=== PATIENT | female | born 1935 | race Asian ===

== ENCOUNTER 2017-03-04 11:41 | Inpatient (IN) | payer OTHER ==
[~2017-03-04] VITALS: Ht 152.4 cm; Wt 39.9 kg
[~2017-03-04 11:41] MED LIST: BLEPH-105 ML; COL100 PO; FLO4 PO; FOLIC ACID0.4 MG; LAC PO; LEVOTHYROXINE0.05 M2 PO; LIPI20 PO; MAC100 PO; MIRUD PO; NOR10T PO; PREDNISONE1 MG; TYLENOL EXTRA500 M2
[2017-03-04 12:23] LABS: BASOPHIL % 0.3 % (0-2); PLATELET COUNT 365 x10^3mcL (130-400)
[2017-03-04 12:34] LABS: CARBON DIOXIDE 18.1 mmol/L (21-32); CHLORIDE SERUM 96 mmol/L (98-107); CREATININE SERUM 0.9 mg/dL (0.6-1.0); GLUCOSE SERUM 125 mg/dL (74-106); POTASSIUM SERUM 4.3 mmol/L (3.5-5.1); SODIUM SERUM 133 mmol/L (136-145)
[2017-03-04 12:40] LABS: ALBUMIN 3.5 g/dL (3.4-5.0); ALKALINE PHOSPHATASE 60 U/L (46-116); ALT/SGPT 30 U/L (14-59); AST/SGOT 25 U/L (15-37); BILIRUBIN TOTAL 1.3 mg/dL (0.20-1.00); TOTAL PROTEIN, SERUM 8.2 g/dL (6.4-8.2)
[2017-03-04 15:00] LABS: MAGNESIUM 2.5 mg/dL (1.8-2.4); PHOSPHOROUS 3.9 mg/dL (2.5-4.9)
[2017-03-04 15:09] LABS: T3 TOTAL 0.63 ng/mL
[2017-03-04 15:13] LABS: FREE T4 2.06 ng/dL (0.76-1.46); FREE THYROXINE INDEX 3.9 ug/dL (1.4-4.5); T4(THYROXINE) 9.7 ug/dL (4.7-13.3)
[2017-03-04 15:33] VITALS: BP 178/99
[2017-03-04 18:23] LABS: UA SPECIFIC GRAVITY 1.025 (1.005-1.035); microscopic required? YES; urine erythrocyte 3+ (NEGATIVE)
[2017-03-04 18:46] VITALS: BP 155/89
[2017-03-04 18:48] LABS: AMPHETAMINE QUAL UR NONE DETECTED (NEG <=1000)
[2017-03-04 21:59] VITALS: BP 142/92
[2017-03-05 06:13] VITALS: BP 138/82
[2017-03-05 06:41] LABS: CARBON DIOXIDE 17.6 mmol/L (21-32); CHLORIDE SERUM 104 mmol/L (98-107); CHOLESTEROL 147 mg/dL (<200); CREATININE SERUM 0.8 mg/dL (0.6-1.0); GLUCOSE SERUM 132 mg/dL (74-106); HDL CHOLESTEROL 49 mg/dL (40-60); POTASSIUM SERUM 4.4 mmol/L (3.5-5.1); SODIUM SERUM 139 mmol/L (136-145); TRIGLYCERIDES 51 mg/dL (<150)
[2017-03-05 06:43] LABS: BASOPHIL % 0.2 % (0-2); PLATELET COUNT 291 x10^3mcL (130-400)
[2017-03-05 08:39] VITALS: BP 125/79
[2017-03-05 14:14] VITALS: BP 102/54
[2017-03-05 22:27] VITALS: BP 133/81; BP 140/79
[2017-03-06 06:33] LABS: BASOPHIL % 0.2 % (0-2); PLATELET COUNT 256 x10^3mcL (130-400)
[2017-03-06 06:36] LABS: RED CELL DISTRIBUTION WIDTH 19.4 % (11.5-14.5)
[2017-03-06 06:48] LABS: CALCIUM 7.6 mg/dL (8.5-10.1); CARBON DIOXIDE 16.9 mmol/L (21-32); CHLORIDE SERUM 115 mmol/L (98-107); CREATININE SERUM 0.7 mg/dL (0.6-1.0); GLUCOSE SERUM 112 mg/dL (74-106); MAGNESIUM 2.1 mg/dL (1.8-2.4); PHOSPHOROUS 2.5 mg/dL (2.5-4.9); POTASSIUM SERUM 3.6 mmol/L (3.5-5.1); SODIUM SERUM 146 mmol/L (136-145)
[2017-03-06 06:58] VITALS: BP 138/80
[2017-03-06 09:18] VITALS: BP 135/76
[2017-03-06 18:10] VITALS: BP 162/90
[2017-03-06 18:16] VITALS: BP 153/86
[2017-03-06 20:59] VITALS: BP 127/77
[2017-03-07 05:29] VITALS: BP 157/83
[2017-03-07 06:25] LABS: BASOPHIL % 0.2 % (0-2); PLATELET COUNT 234 x10^3mcL (130-400)
[2017-03-07 06:35] LABS: CALCIUM 7.4 mg/dL (8.5-10.1); CARBON DIOXIDE 21.6 mmol/L (21-32); CHLORIDE SERUM 113 mmol/L (98-107); CREATININE SERUM 0.8 mg/dL (0.6-1.0); GLUCOSE SERUM 83 mg/dL (74-106); MAGNESIUM 1.9 mg/dL (1.8-2.4); PHOSPHOROUS 2.7 mg/dL (2.5-4.9); POTASSIUM SERUM 3.9 mmol/L (3.5-5.1); SODIUM SERUM 143 mmol/L (136-145)
[2017-03-07 06:37] LABS: ALBUMIN 2.1 g/dL (3.4-5.0)
[2017-03-07 06:52] LABS: RED CELL DISTRIBUTION WIDTH 20.4 % (11.5-14.5); rbc morphology (normal/abnorm) ABNORMAL (NORMAL)
[2017-03-07 09:17] VITALS: BP 163/79
[2017-03-07] MEDS ORDERED: VALACYCLOVIR HYD1 GM PO (09:19)
[2017-03-07] MEDS ORDERED: BACTRIM DS1 TAB PO (09:21)
[2017-03-07] MEDS ORDERED: MEDDP PO (09:22)
[2017-03-07] MEDS ORDERED: LAC PO (09:24)
[2017-03-07] MEDS ORDERED: AMITRIPTYLINE H25 MG PO (09:24)
[2017-03-07 10:45] VITALS: BP 148/88
[2017-03-07] MEDS ORDERED: LISINOPRIL5 MG PO (11:21)
[2017-03-07 17:19] VITALS: BP 150/87
[2017-03-07 21:53] VITALS: BP 150/81
[2017-03-08 06:41] LABS: CALCIUM 8.6 mg/dL (8.5-10.1); CARBON DIOXIDE 22.8 mmol/L (21-32); CHLORIDE SERUM 111 mmol/L (98-107); CREATININE SERUM 0.8 mg/dL (0.6-1.0); GLUCOSE SERUM 114 mg/dL (74-106); MAGNESIUM 2.1 mg/dL (1.8-2.4); PHOSPHOROUS 4.3 mg/dL (2.5-4.9); SODIUM SERUM 145 mmol/L (136-145)
[2017-03-08 06:43] LABS: BASOPHIL % 0.2 % (0-2); PLATELET COUNT 291 x10^3mcL (130-400)
[2017-03-08 06:56] VITALS: BP 153/90
[2017-03-08 07:00] LABS: POTASSIUM SERUM 2.9 mmol/L (3.5-5.1)
[2017-03-08 07:10] LABS: RED CELL DISTRIBUTION WIDTH 20.5 % (11.5-14.5)
[2017-03-08 08:21] LABS: rbc morphology (normal/abnorm) ABNORMAL (NORMAL)
[2017-03-08 09:26] VITALS: BP 149/78
[2017-03-08 17:24] VITALS: BP 149/75
[2017-03-08 21:26] VITALS: BP 118/54
[2017-03-08 22:47] VITALS: BP 155/91
[2017-03-09 06:26] VITALS: BP 164/95
[2017-03-09 06:47] LABS: CALCIUM 8.2 mg/dL (8.5-10.1); CARBON DIOXIDE 26.3 mmol/L (21-32); CHLORIDE SERUM 112 mmol/L (98-107); CREATININE SERUM 0.8 mg/dL (0.6-1.0); GLUCOSE SERUM 73 mg/dL (74-106); MAGNESIUM 2.1 mg/dL (1.8-2.4); PHOSPHOROUS 3.3 mg/dL (2.5-4.9); POTASSIUM SERUM 4.3 mmol/L (3.5-5.1); SODIUM SERUM 145 mmol/L (136-145)
[2017-03-09 06:49] LABS: BASOPHIL % 0.3 % (0-2); PLATELET COUNT 238 x10^3mcL (130-400)
[2017-03-09 07:03] LABS: RED CELL DISTRIBUTION WIDTH 20.3 % (11.5-14.5)
[2017-03-09 09:02] VITALS: BP 146/88
[2017-03-09] MEDS ORDERED: NOR10T PO (12:36)
[2017-03-09 12:49] VITALS: BP 146/88
== END 2017-03-09 15:02 | disposition home health service (06) | DRG 640 ==
LOC: ED 11:41 → DU 13:24 → MU 13:24 → DU 15:14 → MU 03-06 08:08
PROVIDERS: Emergency Medicine; Family Medicine; ADMIT Family Medicine
DX: E86.0 Dehydration (principal); N17.0 Acute kidney failure with tubular necrosis; E43 Unspecified severe protein-calorie malnutrition; Z68.1 Body mass index [BMI] 19.9 or less, adult; B02.8 Zoster with other complications; N39.0 Urinary tract infection, site not specified; E87.1 Hypo-osmolality and hyponatremia; E03.9 Hypothyroidism, unspecified; I10 Essential (primary) hypertension; E78.5 Hyperlipidemia, unspecified; M06.9 Rheumatoid arthritis, unspecified; R73.03 Prediabetes; D32.0 Benign neoplasm of cerebral meninges
CPT/HCPCS: 82962; 83880; 84439; 94150; 97110-GP; 97530-GP; J0696; J2543; J2920; J2930; J3010; J3480; J7030; Q0092; Q0163

== ENCOUNTER 2017-04-09 19:56 | Inpatient (IN) | payer OTHER ==
[~2017-04-09] VITALS: Ht 152.4 cm; Wt 40.8 kg
[~2017-04-09 19:56] MED LIST changes: +AMITRIPTYLINE H25 MG PO; +BACTRIM DS1 TAB PO; +LISINOPRIL5 MG PO; +MEDDP PO; +VALACYCLOVIR HYD1 GM PO
[2017-04-09 20:58] LABS: BASOPHIL % 0.5 % (0-2)
[2017-04-09 21:01] LABS: PLATELET COUNT 450 x10^3mcL (130-400); RED CELL DISTRIBUTION WIDTH 21.1 % (11.5-14.5)
[2017-04-09 21:07] LABS: CALCIUM 8.3 mg/dL (8.5-10.1); CARBON DIOXIDE 22.5 mmol/L (21-32); CHLORIDE SERUM 107 mmol/L (98-107); CREATININE SERUM 0.7 mg/dL (0.6-1.0); GLUCOSE SERUM 94 mg/dL (74-106); POTASSIUM SERUM 3.7 mmol/L (3.5-5.1); SODIUM SERUM 143 mmol/L (136-145)
[2017-04-09 21:19] LABS: ALKALINE PHOSPHATASE 59 U/L (46-116); ALT/SGPT 8 U/L (14-59); AST/SGOT 16 U/L (15-37); BILIRUBIN TOTAL 0.56 mg/dL (0.20-1.00); TOTAL PROTEIN, SERUM 6.8 g/dL (6.4-8.2)
[2017-04-09 21:21] LABS: ALBUMIN 2.1 g/dL (3.4-5.0)
[2017-04-09 22:21] LABS: ovalocyte/elliptocyte 1+; rbc morphology (normal/abnorm) ABNORMAL (NORMAL); tear drop cell (dacryocyte) 1+
[2017-04-09 22:45] LABS: UA SPECIFIC GRAVITY 1.025 (1.005-1.035); microscopic required? YES; urine erythrocyte 2+ (NEGATIVE)
[2017-04-10 01:25] VITALS: BP 131/71
[2017-04-10 01:46] LABS: MAGNESIUM 1.8 mg/dL (1.8-2.4); PHOSPHOROUS 3.6 mg/dL (2.5-4.9)
[2017-04-10 01:47] LABS: CHOLESTEROL/HDL RATIO 3.9
[2017-04-10 01:53] LABS: T3 TOTAL 0.75 ng/mL
[2017-04-10 01:58] LABS: FREE T4 1.44 ng/dL (0.76-1.46); FREE THYROXINE INDEX 3.1 ug/dL (1.4-4.5)
[2017-04-10 06:02] LABS: BASOPHIL % 0.4 % (0-2); PLATELET COUNT 352 x10^3mcL (130-400)
[2017-04-10 06:14] LABS: CALCIUM 7.9 mg/dL (8.5-10.1); CARBON DIOXIDE 23.6 mmol/L (21-32); CHLORIDE SERUM 108 mmol/L (98-107); CREATININE SERUM 0.5 mg/dL (0.6-1.0); GLUCOSE SERUM 78 mg/dL (74-106); POTASSIUM SERUM 3.4 mmol/L (3.5-5.1); SODIUM SERUM 139 mmol/L (136-145)
[2017-04-10 06:22] LABS: RED CELL DISTRIBUTION WIDTH 21.3 % (11.5-14.5)
[2017-04-10 07:01] VITALS: BP 134/64
[2017-04-10 07:30] LABS: rbc morphology (normal/abnorm) ABNORMAL (NORMAL)
[2017-04-10 10:20] VITALS: BP 129/70
[2017-04-10 14:35] VITALS: BP 130/60
[2017-04-10 18:15] VITALS: BP 152/73
[2017-04-10 21:53] VITALS: BP 150/73
[2017-04-11 05:21] VITALS: BP 133/70
[2017-04-11 06:21] LABS: BASOPHIL % 0.3 % (0-2); PLATELET COUNT 334 x10^3mcL (130-400)
[2017-04-11 06:22] LABS: CARBON DIOXIDE 20.9 mmol/L (21-32); CHLORIDE SERUM 113 mmol/L (98-107); CREATININE SERUM 0.5 mg/dL (0.6-1.0); GLUCOSE SERUM 89 mg/dL (74-106); POTASSIUM SERUM 3.4 mmol/L (3.5-5.1); SODIUM SERUM 145 mmol/L (136-145)
[2017-04-11 07:46] LABS: RED CELL DISTRIBUTION WIDTH 21.1 % (11.5-14.5)
[2017-04-11 08:00] VITALS: BP 152/71
[2017-04-11 13:47] VITALS: BP 132/74
[2017-04-11 17:00] VITALS: BP 134/68
[2017-04-11 20:49] VITALS: BP 157/79
[2017-04-12 05:23] VITALS: BP 153/87
[2017-04-12 07:04] LABS: CARBON DIOXIDE 23.4 mmol/L (21-32); CHLORIDE SERUM 112 mmol/L (98-107); CREATININE SERUM 0.5 mg/dL (0.6-1.0); GLUCOSE SERUM 79 mg/dL (74-106); POTASSIUM SERUM 3.5 mmol/L (3.5-5.1); SODIUM SERUM 143 mmol/L (136-145)
[2017-04-12 08:41] LABS: BASOPHIL % 0.4 % (0-2); PLATELET COUNT 372 x10^3mcL (130-400)
[2017-04-12 09:00] LABS: RED CELL DISTRIBUTION WIDTH 21.1 % (11.5-14.5)
[2017-04-12 10:00] VITALS: BP 139/67
[2017-04-12 14:00] VITALS: BP 138/68
[2017-04-13 05:33] LABS: BASOPHIL % 0.4 % (0-2); PLATELET COUNT 349 x10^3mcL (130-400)
[2017-04-13 05:46] LABS: CALCIUM 7.9 mg/dL (8.5-10.1); CARBON DIOXIDE 22.9 mmol/L (21-32); CHLORIDE SERUM 116 mmol/L (98-107); CREATININE SERUM 0.5 mg/dL (0.6-1.0); GLUCOSE SERUM 85 mg/dL (74-106); POTASSIUM SERUM 3.8 mmol/L (3.5-5.1); SODIUM SERUM 145 mmol/L (136-145)
[2017-04-13 06:47] LABS: RED CELL DISTRIBUTION WIDTH 20.4 % (11.5-14.5)
[2017-04-13 09:55] VITALS: BP 145/65
[2017-04-13 13:13] VITALS: BP 149/84
[2017-04-13] MEDS ORDERED: PREDNISONE2.5 MG (14:19)
[2017-04-13] MEDS ORDERED: PREDNISONE2.5 MG PO (14:20)
[2017-04-13 17:11] VITALS: BP 148/84
[2017-04-13 20:33] VITALS: BP 139/84
[2017-04-14 05:51] VITALS: BP 148/73
[2017-04-14 06:42] LABS: BASOPHIL % 0.5 % (0-2); PLATELET COUNT 302 x10^3mcL (130-400)
[2017-04-14 06:43] LABS: RED CELL DISTRIBUTION WIDTH 20.3 % (11.5-14.5)
[2017-04-14 07:08] LABS: rbc morphology (normal/abnorm) ABNORMAL (NORMAL)
[2017-04-14 07:33] LABS: CHLORIDE SERUM 113 mmol/L (98-107); CREATININE SERUM 0.5 mg/dL (0.6-1.0); GLUCOSE SERUM 75 mg/dL (74-106); POTASSIUM SERUM 3.8 mmol/L (3.5-5.1); SODIUM SERUM 139 mmol/L (136-145)
[2017-04-14 09:38] VITALS: BP 136/70
[2017-04-14 13:26] VITALS: BP 151/82
[2017-04-14 17:12] VITALS: BP 164/81
[2017-04-14] MEDS ORDERED: LAC PO (17:12)
[2017-04-14] MEDS ORDERED: TYLENOL WITH CO1 TA2 PO (17:12)
[2017-04-14] MEDS ORDERED: BACTRIM1 TAB PO (17:12)
[2017-04-14] MEDS ORDERED: PHARMASSURE FO0.4 MG PO (17:46)
[2017-04-14] MEDS ORDERED: TYLENOL EXTRA500 M3 PO (17:48)
[2017-04-14 18:07] VITALS: BP 151/82
[2017-04-14 22:06] VITALS: BP 140/72
[2017-04-15 02:40] VITALS: BP 128/83
[2017-04-15 06:10] VITALS: BP 144/65
[2017-04-15 09:43] VITALS: BP 141/70
[2017-04-15 14:22] VITALS: BP 147/78
[2017-04-15 17:25] VITALS: BP 159/94
[2017-04-15 22:09] VITALS: BP 129/71
[2017-04-16 06:14] VITALS: BP 152/91
[2017-04-16 06:15] VITALS: BP 144/68
[2017-04-16 09:29] VITALS: BP 147/83
[2017-04-16 13:05] VITALS: BP 122/58
[2017-04-16 17:50] VITALS: BP 162/87
[2017-04-16 21:17] VITALS: BP 134/71
[2017-04-17] VITALS (9 sets, daily range): BP systolic 115–162; BP diastolic 63–91
[2017-04-18 05:51] VITALS: BP 159/72
[2017-04-18 06:54] LABS: CALCIUM 7.9 mg/dL (8.5-10.1); CARBON DIOXIDE 19.9 mmol/L (21-32); CHLORIDE SERUM 113 mmol/L (98-107); CREATININE SERUM 0.4 mg/dL (0.6-1.0); GLUCOSE SERUM 76 mg/dL (74-106); POTASSIUM SERUM 3.4 mmol/L (3.5-5.1); SODIUM SERUM 141 mmol/L (136-145)
[2017-04-18 08:25] VITALS: BP 142/80
[2017-04-18 09:23] VITALS: BP 123/76
[2017-04-18 13:47] VITALS: BP 136/77
[2017-04-18 17:51] VITALS: BP 136/52
[2017-04-18] MEDS ORDERED: LAC PO (18:01)
[2017-04-18] MEDS ORDERED: BACTRIM DS1 TAB PO (18:01)
== END 2017-04-18 19:46 | disposition home or self-care (01) | DRG 871 ==
LOC: ED 19:56 → DU 04-10 00:18
PROVIDERS: Emergency Medicine; Family Medicine; ADMIT Family Medicine
DX: A41.9 Sepsis, unspecified organism (principal); N17.0 Acute kidney failure with tubular necrosis; E43 Unspecified severe protein-calorie malnutrition; N39.0 Urinary tract infection, site not specified; B02.8 Zoster with other complications; Z68.1 Body mass index [BMI] 19.9 or less, adult; R65.20 Severe sepsis without septic shock; M94.0 Chondrocostal junction syndrome [Tietze]; R73.03 Prediabetes; E03.9 Hypothyroidism, unspecified; I10 Essential (primary) hypertension; D32.0 Benign neoplasm of cerebral meninges; M06.9 Rheumatoid arthritis, unspecified; N20.0 Calculus of kidney; M15.9 Polyosteoarthritis, unspecified; E78.5 Hyperlipidemia, unspecified; M62.50 Muscle wasting and atrophy, not elsewhere classified, unspecified site; Z99.3 Dependence on wheelchair
CPT/HCPCS: 82962; 83880; 84439; 92610-GN; 97110-GP; 97530-GP; J0696; J1644; J1885; J7030; J7512; P9045

== ENCOUNTER 2017-05-03 15:36 | Inpatient (IN) | payer OTHER ==
[~2017-05-03] VITALS: Ht 152.4 cm; Wt 38.8 kg
[~2017-05-03 15:36] MED LIST changes: +BACTRIM1 TAB PO; +PHARMASSURE FO0.4 MG PO; +PREDNISONE2.5 MG; +PREDNISONE2.5 MG PO; +TYLENOL EXTRA500 M3 PO; +TYLENOL WITH CO1 TA2 PO
[2017-05-03 18:23] LABS: BASOPHIL % 0.3 % (0-2)
[2017-05-03 18:24] LABS: UA SPECIFIC GRAVITY 1.025 (1.005-1.035); microscopic required? YES; urine erythrocyte 3+ (NEGATIVE)
[2017-05-03 18:27] LABS: PLATELET COUNT 613 x10^3mcL (130-400); RED CELL DISTRIBUTION WIDTH 20.6 % (11.5-14.5)
[2017-05-03 18:45] LABS: AMPHETAMINE QUAL UR NONE DETECTED (NEG <=1000)
[2017-05-03 19:13] LABS: CALCIUM 7.9 mg/dL (8.5-10.1); CARBON DIOXIDE 16.9 mmol/L (21-32); CHLORIDE SERUM 107 mmol/L (98-107); CREATININE SERUM 0.9 mg/dL (0.6-1.0); GLUCOSE SERUM 97 mg/dL (74-106); POTASSIUM SERUM 4.6 mmol/L (3.5-5.1); SODIUM SERUM 140 mmol/L (136-145)
[2017-05-03 19:23] LABS: ALKALINE PHOSPHATASE 74 U/L (46-116); ALT/SGPT 9 U/L (14-59); AMYLASE 41 U/L (25-115); AST/SGOT 16 U/L (15-37); BILIRUBIN TOTAL 0.6 mg/dL (0.20-1.00); LIPASE 143 IU/L (73-393); MAGNESIUM 1.8 mg/dL (1.8-2.4); T4(THYROXINE) 6.6 ug/dL (4.7-13.3); TOTAL PROTEIN, SERUM 7.1 g/dL (6.4-8.2)
[2017-05-03 19:27] LABS: ALBUMIN 2.1 g/dL (3.4-5.0); CHOLESTEROL 109 mg/dL (<200); HDL CHOLESTEROL 34 mg/dL (40-60)
[2017-05-03 21:02] VITALS: BP 138/85
[2017-05-03 21:51] LABS: CHOLESTEROL/HDL RATIO 3.1
[2017-05-04 05:57] VITALS: BP 102/60
[2017-05-04 06:35] LABS: BASOPHIL % 0.3 % (0-2)
[2017-05-04 06:55] LABS: RED CELL DISTRIBUTION WIDTH 20.5 % (11.5-14.5)
[2017-05-04 07:26] LABS: CALCIUM 7.2 mg/dL (8.5-10.1); CARBON DIOXIDE 17.5 mmol/L (21-32); CHLORIDE SERUM 111 mmol/L (98-107); CREATININE SERUM 0.4 mg/dL (0.6-1.0); GLUCOSE SERUM 67 mg/dL (74-106); POTASSIUM SERUM 3.2 mmol/L (3.5-5.1); SODIUM SERUM 139 mmol/L (136-145)
[2017-05-04 07:45] LABS: PLATELET COUNT 524 x10^3mcL (130-400); rbc morphology (normal/abnorm) ABNORMAL (NORMAL)
[2017-05-04 08:59] VITALS: BP 133/73
[2017-05-04 13:58] VITALS: BP 113/62
[2017-05-04 17:48] VITALS: BP 119/66
[2017-05-04 20:45] VITALS: BP 100/52
[2017-05-05 05:26] VITALS: BP 119/63
[2017-05-05 10:28] VITALS: BP 133/67
[2017-05-05 13:56] VITALS: BP 118/59
[2017-05-05 14:08] VITALS: BP 118/59
[2017-05-05] MEDS ORDERED: LEV250PM IV (15:14)
[2017-05-05] MEDS ORDERED: CLE6PM IV (15:15)
== END 2017-05-05 16:30 | DRG 871 ==
LOC: ED 15:36 → DU 19:37
PROVIDERS: Emergency Medicine; ADMIT Family Medicine
DX: A41.9 Sepsis, unspecified organism (principal); R65.21 Severe sepsis with septic shock; N17.0 Acute kidney failure with tubular necrosis; E43 Unspecified severe protein-calorie malnutrition; N39.0 Urinary tract infection, site not specified; E87.2 Acidosis; Z68.1 Body mass index [BMI] 19.9 or less, adult; E87.6 Hypokalemia; M06.9 Rheumatoid arthritis, unspecified; K72.90 Hepatic failure, unspecified without coma; E02 Subclinical iodine-deficiency hypothyroidism; R73.03 Prediabetes; M62.50 Muscle wasting and atrophy, not elsewhere classified, unspecified site; I10 Essential (primary) hypertension; Z74.01 Bed confinement status; D32.0 Benign neoplasm of cerebral meninges
CPT/HCPCS: 36600; 83880; 92610; 97110-GP; J1956; J3480; J3490; J7030; J7040; J7042; Q0092